=== PATIENT | female | born 2000 | race Caucasian/White ===

== ENCOUNTER 2022-07-05 10:19 | Emergency (ER) | payer OTHER ==
[~2022-07-05 10:19] MED LIST: ACTICIN5 % TOP; AMOXICILLIN500 MG PO; CLINDAMYCIN150 MG PO; ELIMITE5 % EX; HYDROXYZ HCL25 MG PO; KEFLEX500 MG PO; KENALOG15 G1 EX; MEDDOSEPAK PO; NO HOME MEDS; NO MEDS.; OVIDE0.5 % TOP; PREDNISODT15 PO; TRIAMCINOLON0.025 % TOP; TRIAMCINOLON0.11 EX; ULESFIA5 % TOP; ZPAK PO
[2022-07-05 10:32] VITALS: BP 102/66
[2022-07-05 11:15] VITALS: BP 112/77
[2022-07-05 11:30] VITALS: BP 118/76
[2022-07-05 11:45] VITALS: BP 118/75
[2022-07-05 12:00] VITALS: BP 112/67
[2022-07-05 12:09] VITALS: BP 112/67
== END 2022-07-05 12:15 | disposition home or self-care (01) ==
LOC: ED 10:19
DX: U07.1 COVID-19 (principal); R43.8 Other disturbances of smell and taste; R50.9 Fever, unspecified; R52 Pain, unspecified

== ENCOUNTER 2023-09-09 05:45 | Emergency (ER) | payer SELFPAY ==
[~2023-09-09] VITALS: Ht 162.6 cm; Wt 49.0 kg
[2023-09-09] MEDS ORDERED: ACETAMINOPHEN 500 MG TAB PO ONE (06:20)
[2023-09-09] MEDS ORDERED: SODIUM CHLORIDE 0.9% 1,000 ML IV ONE (06:20)
[2023-09-09] MEDS ORDERED: MORPHINE SULFATE 4 MG/ML VIAL IV ONE (06:20)
[2023-09-09] MEDS ORDERED: PROMETHAZINE HCL 25 MG/ML AMP IV ONE (06:20)
[2023-09-09 06:37] LABS: URINE BILIRUBIN - DIPSTICK Negative (NEGATIVE); URINE BLOOD DIPSTICK Negative (NEGATIVE); URINE GLUCOSE - DIPSTICK Negative (NEGATIVE); URINE KETONE Negative (NEGATIVE); URINE LEUK ESTERASE Negative (NEGATIVE); URINE NITRITE - DIPSTICK Negative (Negative); URINE PROTEIN - DIPSTICK Negative (NEG-TRACE); URINE SPECIFIC GRAVITY 1.025; URINE UROBILINOGEN - DIPSTICK 0.2 E.U./dL (0.2)
[2023-09-09 06:38] LABS: BASO% 0.2 % (0-3); EOS% 0.7 % (0-8); HEMATOCRIT 40.2 % (37.0-47.0); HEMOGLOBIN 13.7 g/dl (12.0-16.0); IMMATURE GRANULOCYTES 0.3 % (0.0-5.0); LYMPH% 21.4 % (15-41); MEAN CELL VOLUME 94.6 fL CALC (80.0-100.0); MEAN CORPUSCULAR HGB 32.2 pG CALC (26.0-32.0); MEAN CORPUSCULAR HGB CONC 34.1 g/dL CAL (32.0-36.0); MONO% 6.3 % (2-13); NEUT# 4.3 thou/uL (2.00-7.15); NEUT% 71.1 % (42-76); RED BLOOD COUNT 4.25 mill/uL (4.20-5.60); RED CELL DISTRI WIDTH 12.7 % (11.5-15.5)
[2023-09-09 06:44] LABS: URINE COLOR Yellow
[2023-09-09 07:02] LABS: ALBUMIN 4.3 g/dL (3.2-5.0); CREATININE 0.4 mg/dL (0.5-1.0); POTASSIUM 4.1 mmol/l (3.5-5.1); TOTAL PROTEIN 7.5 g/dL (6.3-8.2)
[2023-09-09 07:10] LABS: BILIRUBIN, TOTAL 0.3 mg/dL (0.02-1.3)
[2023-09-09 08:15] VITALS: BP 117/71
== END 2023-09-09 08:15 | disposition home or self-care (01) | DRG 833 ==
LOC: ED 05:45
PROVIDERS: Family Medicine
DX: O26.891 Other specified pregnancy related conditions, first trimester (principal); R10.12 Left upper quadrant pain; R10.32 Left lower quadrant pain; Z3A.08 8 weeks gestation of pregnancy